=== PATIENT | female | born 1995 | race Caucasian/White ===

== ENCOUNTER 2016-12-06 17:17 | Emergency (ER) | payer OTHER ==
[2016-12-06 17:24] VITALS: BP 117/76; PULSE 85; RESP 16; TEMP 97.7; O2SAT 97
[2016-12-06] MEDS ORDERED: DOXYCYCLINE HYCLATE 100 MG CAP/TAB PO ONE (18:49)
--- NOTE | 2016-12-06 18:52 | EDPHY ---
H & P Time Seen by Provider: 12/06/16 18:27 HPI/ROS: CHIEF COMPLAINT: [facility] dog bite HISTORY OF PRESENT ILLNESS: This is a 21-year-old female presenting to emergency department reports being bit by a prairie dog yesterday [id number]. 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 Reports puncture wounds some swelling and redness, no fever chills no nausea vomiting. Patient states tetanus vaccine up-to-date 6-7 years ago. REVIEW OF SYSTEMS: Constitutional: No fever, no chills. Eyes: No discharge. No blurred vision ENT: No sore throat. Cardiovascular: No chest pain, no palpitations. Respiratory: No cough, no shortness of breath. Gastrointestinal: No abdominal pain, no vomiting. Musculoskeletal: No back pain. Right index finger puncture wounds with redness and swelling Skin: No rashes. Neurological: No headache. Smoking Status: Never smoked Physical Exam: General Appearance: Alert, no distress. Non ill-appearing Eyes: Pupils equal and round no pallor or injection. ENT, Mouth: Mucous membranes moist. Respiratory: There are no retractions, lungs are clear to auscultation. Cardiovascular: Regular rate and rhythm. Gastrointestinal: Abdomen is soft and nontender Neurological: No focal deficits Skin: Warm and dry, no rashes. Musculoskeletal: Neck is supple nontender. Right index finger in between the DIP in MIP joint puncture wounds 1 anterior 1 posterior, redness some swelling noted. Full range of motion positive CMS intact no obvious deformity Extremities: symmetrical, full range of motion. Psychiatric: Patient is oriented X 3, there is no agitation. Constitutional: Initial Vital Signs Temperature (C) 36.5 C 12/06/16 17:21 Heart Rate 85 12/06/16 17:21 Respiratory Rate 16 12/06/16 17:21 Blood Pressure 117/76 12/06/16 17:21 O2 Sat (%) 97 12/06/16 17:21 O2 Delivery Mode Room Air Allergies/Adverse Reactions: No Known Allergies Allergy (Unverified 12/06/16 17:20) Home Medications: Medication Instructions Recorded Doxycycline Hyclate 100 mg PO BID #14 capsule 12/06/16 levOFLOXACIN [Levaquin] 500 mg PO DAILY #7 tablet 12/07/16 Medical Decision Making ED Course/Re-evaluation: Discussed ED plan of care: Wound irrigation 1839: Spoke with Dr. Sanchez with Infectious Disease, no concern for rabies but other organisms recommendation of doxycycline twice daily x7 days and levofloxacin daily x7 days 1844: Discussed plan of care with patient, 1st dose of antibiotics given here, and wound irrigation, 1914: Discharge home---> stable, discussed all discharge instructions with patient and precautions Differential Diagnosis: Other differential diagnosis considered but not limited to tenosynovitis, cellulitis, and abscess - Data Points Medications Given: Discontinued Medications Doxycycline Hyclate (Doxycycline Hyclate) 100 mg PO EDNOW ONE PRN Reason: Protocol Stop: 12/06/16 18:50 Last Admin: 12/06/16 19:08 Dose: 100 mg Levofloxacin (Levaquin) 500 mg PO EDNOW ONE PRN Reason: Protocol Stop: 12/06/16 18:50 Last Admin: 12/06/16 19:08 Dose: 500 mg Departure - Departure Disposition: Home, Routine, Self-Care Clinical Impression: Non-rat rodent bite Condition: Good Instructions: Animal Bite (ED) Additional Instructions: 1. Take all antibiotics as prescribed. I have spoken with our infectious disease department in these are the recommended antibiotics doxycycline twice daily x7 days and levofloxacin daily x7 days 2. Ibuprofen as needed 608 100 mg every 6-8 hours 3. Monitor for any worsening symptoms< such as: Increased redness swelling fever unable to move finger and any red streaks return to the ER. Otherwise follow up with your primary care doctor next week when you get back home Referrals: BURAK GOMEZ [Other] - As per Instructions Prescriptions: Doxycycline Hyclate 100 mg PO BID #14 capsule levOFLOXACIN [Levaquin] 500 mg PO DAILY #7 tablet
== END 2016-12-06 19:19 | disposition home or self-care (01) ==
DX: S61.250A Open bite of right index finger without damage to nail, initial encounter (principal); W54.0XXA Bitten by dog, initial encounter